=== PATIENT | female | born 1945 | race Caucasian/White ===

== ENCOUNTER → 2018-11-15 10:47 | Outpatient (CLI) | payer OTHER, SELFPAY ==
--- NOTE | 2018-11-15 | DI.MG.S_ITS ---
BILATERAL DIGITAL SCREENING MAMMOGRAM 3D/2D WITH CAD: 11/15/2018 CLINICAL: Routine screening. Comparison is made to exams dated: 09/30/2017 mammogram, 09/24/2015 mammogram, and 09/04/2014 mammogram - [facility]. There are scattered fibroglandular elements in both breasts. Current study was also evaluated with a Computer Aided Detection (CAD) system. There is a mole marker on the right breast. No significant masses, calcifications, or other findings are seen in either breast. There has been no significant interval change. IMPRESSION: NEGATIVE There is no mammographic evidence of malignancy. A 1 year screening mammogram is recommended. This exam was interpreted at Station ID: [id number]. NOTE: For mammograms, a report in lay terms will be sent to the patient. Approximately 15% of breast malignancies will not be visualized mammographically. In the management of a palpable breast mass, a negative mammogram must not discourage biopsy of a clinically suspicious lesion. Electronically Signed By: Juventino hernández/jose:11/15/2018 19:10:07 letter sent: Normal Exam ACR BI-RADS Category 1: Negative 3341F
== END ==
PROVIDERS: Family Provider Family Medicine; PCP Family Medicine; Visit Provider Family Medicine
DX: Z12.31 Encounter for screening mammogram for malignant neoplasm of breast (principal)
CPT/HCPCS: 77063; 77067

== ENCOUNTER → 2019-02-14 14:00 | Outpatient (CLI) | payer OTHER, SELFPAY | PROVIDERS: PCP Family Medicine; Visit Provider Family Medicine | DX: M81.0 Age-related osteoporosis without current pathological fracture (principal); Z78.0 Asymptomatic menopausal state | CPT/HCPCS: 77080 ==

== ENCOUNTER → 2019-12-26 08:44 | Outpatient (CLI) | payer OTHER, SELFPAY ==
--- NOTE | 2019-12-26 | DI.MG.S_ITS ---
BILATERAL DIGITAL SCREENING MAMMOGRAM 3D/2D WITH CAD: 12/26/2019 CLINICAL: Routine screening. Comparison is made to exams dated: 11/15/2018 mammogram, 09/30/2017 mammogram, and 09/24/2015 mammogram - [facility]. There are scattered fibroglandular elements in both breasts. Current study was also evaluated with a Computer Aided Detection (CAD) system. There is a mole marker on both breasts. No significant masses, calcifications, or other findings are seen in either breast. There has been no significant interval change. IMPRESSION: NEGATIVE There is no mammographic evidence of malignancy. A 1 year screening mammogram is recommended. This exam was interpreted at Station ID: [id number]. NOTE: For mammograms, a report in lay terms will be sent to the patient. Approximately 15% of breast malignancies will not be visualized mammographically. In the management of a palpable breast mass, a negative mammogram must not discourage biopsy of a clinically suspicious lesion. Electronically Signed By: Vicki noland/jose:12/26/2019 09:17:17 letter sent: Normal Exam ACR BI-RADS Category 1: Negative 3341F
== END ==
PROVIDERS: PCP Family Medicine; Referring Provider Family Medicine; Visit Provider Family Medicine
DX: Z12.31 Encounter for screening mammogram for malignant neoplasm of breast (principal)
CPT/HCPCS: 77063; 77067

== ENCOUNTER → 2020-10-22 09:41 | Outpatient (CLI) | payer OTHER, SELFPAY ==
--- NOTE | 2020-10-22 09:43 | DI.RAD.S_ITS ---
PROCEDURE: XR DEXA AXIAL SKELETON INDICATIONS: OSTEOPOROSIS COMPARISON: [facility], CR, XR DEXA AXIAL SKELETON, 02/14/2019, 14:23. FINDINGS: This blank DEXA report has been sent in error by the PACS system. The correct and complete report will be forthcoming in 1-2 days. Thank you for your patience and understanding. Dictated by: Letitia Wilkerson MD, PhD on 10/22/2020 at 14:47 Approved by: Letitia Wilkerson MD, PhD on 10/22/2020 at 14:47
== END ==
PROVIDERS: PCP Family Medicine; Referring Provider Family Medicine; Visit Provider Family Medicine
DX: M81.0 Age-related osteoporosis without current pathological fracture (principal); Z78.0 Asymptomatic menopausal state
CPT/HCPCS: 77080

== ENCOUNTER → 2021-01-20 12:10 | Outpatient (CLI) | payer OTHER, SELFPAY ==
--- NOTE | 2021-01-20 12:11 | DI.MG.S_ITS ---
BILATERAL DIGITAL SCREENING MAMMOGRAM 3D/2D WITH CAD: 01/20/2021 CLINICAL: Routine screening. Comparison is made to exams dated: 12/26/2019 mammogram, 11/15/2018 mammogram, and 09/30/2017 mammogram - [facility]. There are scattered fibroglandular elements in both breasts. Current study was also evaluated with a Computer Aided Detection (CAD) system. There is a mole marker on both breasts. No significant masses, calcifications, or other findings are seen in either breast. There has been no significant interval change. IMPRESSION: NEGATIVE There is no mammographic evidence of malignancy. A 1 year screening mammogram is recommended. This exam was interpreted at Station ID: [id number]. NOTE: For mammograms, a report in lay terms will be sent to the patient. Approximately 15% of breast malignancies will not be visualized mammographically. In the management of a palpable breast mass, a negative mammogram must not discourage biopsy of a clinically suspicious lesion. Electronically Signed By: Fredis Cardona M.D., jr/jose:01/20/2021 13:05:28 letter sent: Normal Exam ACR BI-RADS Category 1: Negative 3341F
== END ==
PROVIDERS: PCP Family Medicine; Referring Provider Family Medicine; Visit Provider Family Medicine
DX: Z12.31 Encounter for screening mammogram for malignant neoplasm of breast (principal)
CPT/HCPCS: 77063; 77067

== ENCOUNTER → 2021-01-22 11:22 | Outpatient (CLI) | payer OTHER, SELFPAY ==
--- NOTE | 2021-01-22 | DI.RAD.S_ITS ---
PROCEDURE: XR FOOT RT MIN 3V INDICATIONS: RIGHT HEEL PAIN/RIGHT KNEE PAIN TECHNIQUE: 3 views of the foot were acquired. COMPARISON: None. FINDINGS: Bones: No acute fractures or dislocations. No suspicious bony lesions. Degenerative changes of the 1st metatarsophalangeal joint. Prominent plantar calcaneal and retrocalcaneal enthesophytes. Soft tissues: No tibiotalar joint effusion. Achilles tendon appears normal. IMPRESSION: Right foot without acute osseous abnormalities. Mild degenerative changes of the 1st metatarsophalangeal joint. Prominent plantar calcaneal and retrocalcaneal enthesopathy. Dictated by: Delvin Bang M.D. on 01/22/2021 at 14:25 Approved by: Delvin Bang M.D. on 01/22/2021 at 14:26
--- NOTE | 2021-01-22 | DI.RAD.S_ITS ---
PROCEDURE: XR KNEE RT 3V INDICATIONS: RIGHT H EEL PAIN/RIGHT KNEE PAIN TECHNIQUE: 3 views of the knee were acquired. COMPARISON: [facility], , KNEE 3V LEFT, 09/06/2013, 11:17. FINDINGS: Bones: No acute fractures or dislocations. Tricompartmental osteoarthritic changes of the right knee with small marginal osteophytes. There is an enthesophyte at the insertion site of the distal quadriceps tendon onto the superior pole of the patella. No suspicious bony lesions. No significant joint space loss with weight-bearing views. Soft tissues: Small suprapatellar joint effusion. No suspicious soft tissue calcifications. IMPRESSION: Right knee without acute fracture or dislocation. Mild tricompartmental osteoarthrosis of the right knee with small suprapatellar joint effusion. Distal quadriceps enthesopathy. Dictated by: Delvin Bang M.D. on 01/22/2021 at 14:26 Approved by: Delvin Bang M.D. on 01/22/2021 at 14:28
== END ==
PROVIDERS: PCP Family Medicine; Referring Provider Family Medicine; Visit Provider Family Medicine
DX: M79.671 Pain in right foot (principal); M77.31 Calcaneal spur, right foot; M25.561 Pain in right knee; M17.11 Unilateral primary osteoarthritis, right knee; M25.551 Pain in right hip
CPT/HCPCS: 73562; 73630

== ENCOUNTER → 2021-03-21 15:03 | Outpatient (CLI) | payer OTHER, SELFPAY ==
--- NOTE | 2021-03-21 15:05 | DI.MRI.S_ITS ---
PROCEDURE: MR KNEE RT WO CON INDICATIONS: PAIN IN RIGHT KNEE TECHNIQUE: Noncontrast sagittal PD fast spin echo and T2 fast spin echo with fat saturation, sagittal 3-D FLASH with fat saturation; coronal T1 spin echo and PD fast spin echo with fat saturation, and axial PD fast spin echo with fat saturation through the knee. COMPARISON: [facility], MR, KNEE WITHOUT CONTRAST, 10/31/2013, 7:48. FINDINGS: Menisci: Lateral meniscus intact. Ill-defined tear of the posterior horn and body of the medial meniscus with marked intrasubstance signal change which extends to the superior and inferior articular surfaces. There is partial extrusion. Cruciate ligaments: Anterior cruciate ligament appears intact. Posterior cruciate ligament appears intact. Medial structures: There is medial bowing of the medial collateral ligament, with mild internal signal changes and no complete rupture. There is adjacent soft tissue edema. The appearance could reflect reactive changes to medial compartment pathology, versus low-grade sprain of the MCL. Pes anserinus tendons appear grossly unremarkable. Semimembranosus tendon appears intact. Lateral structures: The lateral collateral ligament demonstrates thickening and intrasubstance signal change in keeping with low grade sprain, statistically chronic, although technically age indeterminate. Biceps femoris tendon appears intact. Popliteus tendon grossly unremarkable. Iliotibial band appears intact. Anterior structures: Quadriceps tendon intact. Medial and lateral patellofemoral ligaments intact. There is mild patellar tendinopathy. Prepatellar and superficial infrapatellar subcutaneous edema/fluid. Bones and cartilage: Marrow: No focal marrow contusion or discrete low signal fracture line. Medial compartment: Partial-thickness loss of the femoral articular cartilage. The tibial cartilage demonstrates low-grade surface fraying peripherally. Lateral compartment: No focal cartilage defect. Patellofemoral compartment: No focal cartilage defect. Joint space: Moderate joint effusion Trace fluid between the semimembranosus and medial gastrocnemius tendons without definite formed cyst. No specific evidence of intra-articular loose body. IMPRESSION: Complex medial meniscal tear involving the body and posterior horn with partial extrusion. Adjacent MCL changes as above. Mild patellar tendinopathy Mild medial compartment osteoarthritis Moderate joint effusion Dictated by: Jamie Calvin M.D. on 03/23/2021 at 9:12 Approved by: Jamie Calvin M.D. on 03/23/2021 at 9:18
== END ==
PROVIDERS: PCP Family Medicine; Referring Provider Family Medicine; Visit Provider Family Medicine
DX: M25.561 Pain in right knee (principal); S83.231A Complex tear of medial meniscus, current injury, right knee, initial encounter; M17.11 Unilateral primary osteoarthritis, right knee; M25.461 Effusion, right knee
CPT/HCPCS: 73721